=== PATIENT | female | born 1980 | race Caucasian/White ===

== ENCOUNTER 2018-04-07 21:24 | Emergency (ER) | payer OTHER ==
[~2018-04-07] VITALS: Ht 177.8 cm; Wt 83.9 kg
[2018-04-07 22:12] LABS: URINE BILIRUBIN NEGATIVE (Negative); URINE BLOOD NEGATIVE (Negative); URINE CLARITY CLEAR; URINE COLOR YELLOW; URINE GLUCOSE-RANDOM NEGATIVE (Negative); URINE KETONES NEGATIVE (Negative); URINE LEUKOCYTES-REFLEX NEGATIVE (Negative); URINE NITRITE-REFLEX NEGATIVE (Negative); URINE PROTEIN NEGATIVE (Negative); URINE SPECIFIC GRAVITY >= 1.030 (1.005-1.030); URINE UROBILINOGEN 0.2 E.U./dl (0.2-1.0)
[2018-04-07 22:49] LABS: ABSOLUTE EOSINOPHILS 0.1 thou/uL (0.0-0.7); ABSOLUTE LYMPHOCYTES 1.8 thou/uL (0.8-5.3); ABSOLUTE MONOCYTES 0.6 thou/uL (0.0-1.2); ABSOLUTE NEUTROPHILS 4.6 thou/uL (1.6-8.1); BASOPHILS 0.5 %; HEMATOCRIT 36.9 % (37.0-47.0); HEMOGLOBIN 12.2 gm/dL (12.0-15.0); LYMPHOCYTES 25.6 %; MCH 29.8 pg (26.0-34.0); MCHC 33.2 g/dL (28.0-37.0); MCV 89.9 fL (80.0-100.0); MONOCYTES 8.2 %; MPV 9.3 fl. (7.2-11.1); NUCLEATED RBCS 0 /100WBC; PLATELET COUNT* 221 thou/uL (150-400); POLYS 64.7 %; RDW-CV 13.3 % (10.5-14.5); WBC 7.1 thou/uL (4.0-11.0)
[2018-04-07 23:00] LABS: CALCIUM 9.3 mg/dL (8.5-10.1); CREATININE 0.7 mg/dL (0.6-1.3); POTASSIUM 4.1 mmol/L (3.5-5.1)
[2018-04-07 23:04] LABS: ALBUMIN 3.7 g/dL (3.4-5.0); TOTAL BILIRUBIN 0.1 mg/dL (<0.1-1.0); TOTAL PROTEIN 7.8 g/dL (6.4-8.2)
[2018-04-08] MEDS ORDERED: FLOMAX0.4 MG PO (00:15)
[2018-04-08 00:38] VITALS: BP 126/67
== END 2018-04-08 00:38 | disposition home or self-care (01) ==
LOC: M.ERS 21:24
PROVIDERS: Physician Assistant
DX: R30.0 Dysuria (principal); M54.5 Low back pain; Z88.6 Allergy status to analgesic agent; Z91.018 Allergy to other foods

== ENCOUNTER 2019-09-06 22:11 | Emergency (ER) | payer OTHER ==
[~2019-09-06] VITALS: Ht 182.9 cm; Wt 68.0 kg
[~2019-09-06 22:11] MED LIST: FLOMAX0.4 MG PO
[2019-09-06] MEDS ORDERED: METFORMIN HCL500 M3 PO (22:28)
[2019-09-06] MEDS ORDERED: BASAGLAR K100 UNIT/1 SUBQ (22:28)
[2019-09-06] MEDS ORDERED: CELEXA 20 MG TA20 MG PO (22:28)
[2019-09-06 22:47] LABS: URINE BILIRUBIN NEGATIVE (Negative); URINE BLOOD 1+ (Negative); URINE CLARITY CLEAR; URINE COLOR YELLOW; URINE GLUCOSE-RANDOM NEGATIVE (Negative); URINE KETONES NEGATIVE (Negative); URINE LEUKOCYTES-REFLEX TRACE (Negative); URINE NITRITE-REFLEX NEGATIVE (Negative); URINE PROTEIN NEGATIVE (Negative); URINE SPECIFIC GRAVITY >= 1.030 (1.005-1.030)
[2019-09-06 23:00] LABS: ABSOLUTE LYMPHOCYTES 1.9 thou/uL (0.8-5.3); ABSOLUTE MONOCYTES 0.7 thou/uL (0.0-1.2); ABSOLUTE NEUTROPHILS 7.6 thou/uL (1.6-8.1); BASOPHILS 0.3 %; EOSINOPHILS 0.3 %; HEMOGLOBIN 12.6 gm/dL (12.0-15.0); LYMPHOCYTES 18.2 %; MCH 30.9 pg (26.0-34.0); MCV 90.8 fL (80.0-100.0); MPV 9.6 fl. (7.2-11.1); NUCLEATED RBCS 0 /100WBC; PLATELET COUNT* 232 thou/uL (150-400); POLYS 74.2 %; RBC 4.07 mil/uL (4.20-5.00); RDW-CV 13.6 % (10.5-14.5); WBC 10.3 thou/uL (4.0-11.0)
[2019-09-06 23:01] LABS: SQUAMOUS >10 Many /LPF (0-3)
[2019-09-06 23:02] LABS: CASTS None Seen /LPF (None Seen); MUCUS 0-3 Light strn/LPF (None Seen); URINE WBC-REFLEX 6-15 Few /HPF (0-5)
[2019-09-06 23:03] LABS: BACTERIA-REFLEX >30 Many /HPF (None Seen); CRYSTALS None Seen /LPF (None Seen); URINE RBC 0-2 Rare /HPF (0-2)
[2019-09-06 23:05] LABS: CALCIUM 9.3 mg/dL (8.5-10.1); CREATININE 0.7 mg/dL (0.6-1.3); POTASSIUM 3.8 mmol/L (3.5-5.1)
[2019-09-06 23:09] LABS: ALBUMIN 4.3 g/dL (3.4-5.0); TOTAL BILIRUBIN 0.3 mg/dL (<0.1-1.0); TOTAL PROTEIN 8.7 g/dL (6.4-8.2)
[2019-09-07 00:58] VITALS: BP 114/57
== END 2019-09-07 00:58 | disposition home or self-care (01) ==
LOC: M.ERS 22:11
PROVIDERS: Emergency Medicine
DX: N60.01 Solitary cyst of right breast (principal); E11.9 Type 2 diabetes mellitus without complications; Z79.4 Long term (current) use of insulin

== ENCOUNTER → 2019-09-08 | Outpatient (CLI) | payer OTHER ==
[~2019-09-08] MED LIST changes: +BASAGLAR K100 UNIT/1 SUBQ; +CELEXA 20 MG TA20 MG PO; +METFORMIN HCL500 M3 PO
[2019-09-08 17:04] LABS: BF RBC <1000 /mm3; TOTAL CELL COUNT >66000 /mm3
[2019-09-08 17:08] LABS: TOTAL VOLUME 45 ml
[2019-09-08 17:09] LABS: BF OTHER CYTO TO FOLLOW; CLARITY CLOUDY
[2019-09-08 17:12] LABS: BF LYMPHOCYTES 3 %; BF POLYS 96 %; BODY FLUID BANDS 1 %
[2019-09-08 17:49] LABS: SOURCE CYST
--- NOTE | 2019-09-10 15:08 | PATH ---
[address] [address] PATHOLOGY RPT PROCEDURE Name: ALBERT ATKINSON Room: [facility]#: [id number] Admission: 09/08/19 Date of : 80 Discharge: Report #: [id number] Path Case #: [id number] Note [facility] Accession Number: [id number] TESTS RESULT FLAG UNITS REF RANGE LAB Clinician Provided Cytology Information No. of containers..01 Other (Miscellaneous) Source: BREAST CYST FNA DIAGNOSIS: 02 RIGHT BREAST CYST FNA NEGATIVE FOR MALIGNANT CELLS. DUCTAL CELLS ARE PRESENT. APOCRINE METAPLASIA IS PRESENT. RED BLOOD CELLS ARE PRESENT. THIS INTERPRETATION INCLUDES EVALUATION OF A CELL BLOCK. Signed out by: 02 Prince Fischer MD, Pathologist NPI- [id number] Performed by: 01 Bhumika Hough, Surface Supervisor ([facility]) Gross description: 01 45 ML, CLOUDY BROWN, 1 TP 1 CB /LCS 09/09/2019 1136 Local FLAG LEGEND: L-Low Normal,H-High Normal,LL-Alert Low,HH-Alert High <-Panic Low,>-Panic High,A-Abnormal,AA-Critical Abnormal Performed at: [address] [place] [address] Babak Cruz MD, [address] [place] [address] [place] [address] Prince Fischer MD, Specimen Comment: A courtesy copy of this report has been sent to [phone], [phone] Specimen Comment: 1973 Specimen Comment: Report sent to / DR HURDG Specimen Comment: A duplicate report has been generated due to demographic updates. Performed at: [address], [place], [place] [id number] MD Babak Cruz MD Phone: [phone]
== END ==
LOC: M.RAD 11:24
PROVIDERS: Family Medicine
DX: N63.13 Unspecified lump in the right breast, lower outer quadrant (principal); N60.01 Solitary cyst of right breast

== ENCOUNTER 2019-11-27 13:47 | Emergency (ER) | payer OTHER ==
[~2019-11-27] VITALS: Ht 177.8 cm; Wt 68.0 kg
[2019-11-27] MEDS ORDERED: VENTOLIN HFA 1818 GM INH (14:47)
[2019-11-27 15:01] VITALS: BP 110/71
== END 2019-11-27 15:08 | disposition home or self-care (01) ==
LOC: M.ERS 13:47
DX: U07.1 COVID-19 (principal); E11.9 Type 2 diabetes mellitus without complications; J45.909 Unspecified asthma, uncomplicated; Z79.899 Other long term (current) drug therapy; Z98.890 Other specified postprocedural states

== ENCOUNTER → 2020-06-22 | Outpatient (CLI) | payer BC ==
[~2020-06-22] MED LIST changes: +VENTOLIN HFA 1818 GM INH
== END ==
LOC: M.ULTRA 06-07 16:00
PROVIDERS: ATTEND Family Medicine
DX: R10.2 Pelvic and perineal pain (principal); N39.0 Urinary tract infection, site not specified; N92.6 Irregular menstruation, unspecified